=== PATIENT | female | born 1970 | race Caucasian/White ===

== ENCOUNTER 2021-08-13 12:21 | Emergency (ER) | payer OTHER ==
[~2021-08-13] VITALS: Ht 157.5 cm; Wt 59.0 kg
[2021-08-13 12:27] VITALS: BP 111/62
[2021-08-13] MEDS ORDERED: NAPR-56 PO (13:30)
[2021-08-13] MEDS ORDERED: CYCL-1 PO (13:30)
[2021-08-13] MEDS ORDERED: ketorolac trometh inj. 60 MG/2 ML VIAL IM ONE (13:45)
== END 2021-08-13 14:07 | disposition home or self-care (01) ==
LOC: ER 12:22
DX: M54.89 Other dorsalgia (principal); M62.830 Muscle spasm of back; R53.1 Weakness; E11.9 Type 2 diabetes mellitus without complications; F32.A Depression, unspecified; F12.90 Cannabis use, unspecified, uncomplicated; Z98.890 Other specified postprocedural states; Z79.899 Other long term (current) drug therapy; W19.XXXA Unspecified fall, initial encounter; Y93.89 Activity, other specified; Y92.89 Other specified places as the place of occurrence of the external cause; Y99.8 Other external cause status
CPT/HCPCS: 71101; 72100; 96372; 99284; J1885

== ENCOUNTER 2022-07-09 11:40 | Emergency (ER) | payer SELFPAY ==
[~2022-07-09] VITALS: Ht 157.5 cm; Wt 63.6 kg
[~2022-07-09 11:40] MED LIST: CYCL-1 PO
[2022-07-09 11:57] VITALS: BP 119/72
[2022-07-09] MEDS ORDERED: AMOX-100 PO (13:55)
[2022-07-09] MEDS ORDERED: IBUP-1986 PO (13:55)
[2022-07-09] MEDS ORDERED: amoxicillin 250mg capsule PO ONE (14:00)
[2022-07-09] MEDS ORDERED: ketorolac trometh inj. 60 MG/2 ML VIAL IM ONE (14:00)
== END 2022-07-09 14:29 | disposition home or self-care (01) ==
LOC: ER 11:40
DX: K08.89 Other specified disorders of teeth and supporting structures (principal); E11.9 Type 2 diabetes mellitus without complications; F32.A Depression, unspecified; F12.10 Cannabis abuse, uncomplicated; Z79.899 Other long term (current) drug therapy; Z79.2 Long term (current) use of antibiotics
CPT/HCPCS: 96372; 99283; J1885

== ENCOUNTER 2024-10-07 18:14 | Inpatient (IN) | payer BC, OTHER ==
[~2024-10-07] VITALS: Ht 157.5 cm; Wt 51.5 kg
[~2024-10-07 18:14] MED LIST changes: +IBUP-1986 PO
[2024-10-07 18:32] LABS: BASOPHILS % (AUTO) 0.6 % (0-1); EOSINOPHILS # (AUTO) 0.1 X10'3 (0-0.9); EOSINOPHILS % (AUTO) 0.7 % (0-6); HEMATOCRIT 36.9 % (35.0-45.0); HEMOGLOBIN 11.6 g/dl (12.0-16.0); LYMPHOCYTES # (AUTO) 2.1 X10'3 (1.1-4.8); LYMPHOCYTES % (AUTO) 26.3 % (21-51); MEAN CORPUSCULAR HEMOGLOBIN 22.9 PG (27.0-31.0); MEAN CORPUSCULAR HGB CONC 31.5 g/dL (33.0-36.5); MEAN CORPUSCULAR VOLUME 72.7 FL (78-98); MEAN PLATELET VOLUME 7.7 FL (7.4-10.4); MONOCYTES # (AUTO) 0.5 X10'3 (0-0.9); MONOCYTES % (AUTO) 6.8 % (2-12); NEUTROPHILS # (AUTO) 5.2 X10'3 (1.8-7.7); NEUTROPHILS % (AUTO) 65.6 % (42-75); PLATELET COUNT 375 X10'3 (140-440); RED BLOOD COUNT 5.07 X10'6 (4.20-5.60); RED CELL DISTRIBUTION WIDTH 16.6 % (11.5-14.5)
[2024-10-07 18:51] LABS: ALANINE AMINOTRANSFERASE 25 U/L (12-78); ALBUMIN 3.7 G/DL (3.4-5.0); ALKALINE PHOSPHATASE 81 IU/L (46-116); ANION GAP 11 (8-16); ASPARTATE AMINO TRANSFERASE 9 U/L (10-37); BILIRUBIN,TOTAL 0.6 MG/DL (0.1-1.0); BLOOD UREA NITROGEN 21 MG/DL (7-18); CALCIUM 8.9 MG/DL (8.5-10.1); CHLORIDE 92 MMOL/L (99-107); CREATININE 0.84 MG/DL (0.40-0.90); POTASSIUM 3.6 MMOL/L (3.5-5.1); PRO BRAIN NATRIURETIC PEPTIDE 5634 PG/ML (0-125); SODIUM 129 MMOL/L (135-145); TOTAL CARBON DIOXIDE 26.5 MMOL/L (24-32); TOTAL PROTEIN 7.3 G/DL (6.4-8.2); eCRCL 59 ML/MIN; eGFR 70 ML/MIN
[2024-10-07 19:03] LABS: GLUCOSE 429 MG/DL (70-104)
[2024-10-07] MEDS ORDERED: iohexol 350MG/ML 100ml bottle IV ONE (19:41)
[2024-10-07 19:50] LABS: D-DIMER 0.39 MG/L FEU (0-0.50)
[2024-10-07] MEDS: furosemide 40mg/4ml inj IV ONE (22:12)
[2024-10-07] MEDS ORDERED: heparin 10,000 units/1 ML INJ IV ONE (22:20)
[2024-10-07 22:45] LABS: PROTHROMBIN TIME 10.3 SECONDS (9.0-12.0)
[2024-10-07] MEDS: heparin 10,000 units/1 ML INJ IV ONE (22:47)
[2024-10-07 22:49] LABS: APTT 22 SECONDS (22-32)
[2024-10-07] MEDS ORDERED: HYDROcodone/acetaminophen 10/325mg tab PO PRN (22:50)
[2024-10-07] MEDS ORDERED: HYDROcodone/acetaminophen 5mg/325mg tablet PO PRN (22:50)
[2024-10-07] MEDS ORDERED: magnesium Cl slow-release 64mg tablet PO PRN (22:50)
[2024-10-07] MEDS ORDERED: potassium Cl 40MEQ/1/2NS 520ml 520 ML IV PRN (22:50)
[2024-10-07] MEDS ORDERED: acetaminophen 325mg tablet PO PRN ×2 (22:50)
[2024-10-07] MEDS ORDERED: magnesium sulf-water 2g/50mL 50 ML IV PRN (22:50)
[2024-10-07] MEDS: heparin 25,000 UNIT/250ml bag 250 ML IV PRN (22:50)
[2024-10-07] MEDS ORDERED: potassium Cl 20 mEq SR tablet PO PRN (22:50)
[2024-10-07] MEDS ORDERED: ondansetron/PF 4mg/2ml inj IV PRN (22:50)
[2024-10-07] MEDS ORDERED: magnesium sulf-water 4G/100mL 100 ML IV PRN (22:50)
[2024-10-07] MEDS ORDERED: dextrose 50%-water 50ml dispensing syringe IV PRN ×2 (23:00)
[2024-10-07] MEDS ORDERED: aminophylline 250mg/10ml inj. IV PRN (23:00)
[2024-10-07] MEDS ORDERED: nitroGLYCERIN 0.4mg SUBLingual tab SL PRN ×2 (23:00)
[2024-10-07] MEDS ORDERED: glucagon, human recombinant 1mg kit SUBCUT PRN (23:00)
[2024-10-07] MEDS ORDERED: DEXTROSE 15 GM of carb/4 tabs (each vial/BOTTLE has 4 tablets) PO PRN ×2 (23:00)
[2024-10-07] MEDS: MESSAGE TO NURSING IV ONE (23:09)
[2024-10-07] MEDS ORDERED: ARIP5TAB53 PO (23:17)
[2024-10-07] MEDS ORDERED: TRAZ-251 (23:17)
[2024-10-07] MEDS ORDERED: BUPR-726 PO (23:17)
[2024-10-07] MEDS ORDERED: ATOR20TA66 PO (23:17)
[2024-10-07] MEDS ORDERED: FLUO40CA PO (23:17)
[2024-10-07] MEDS ORDERED: INSU100I31 SQ (23:17)
[2024-10-07] MEDS ORDERED: FLUO-167 PO (23:17)
[2024-10-07] MEDS ORDERED: ONDA-245 PO (23:17)
[2024-10-07] MEDS ORDERED: EMPA25TA PO (23:17)
[2024-10-07] MEDS ORDERED: METF-438 PO (23:17)
[2024-10-07] MEDS ORDERED: METO-395 PO (23:17)
[2024-10-07 23:18] LABS: CHOL/HDL RATIO 4.1 (0.00-4.99); CHOLESTEROL 169 MG/DL (0-200); HDL CHOLESTEROL 41 MG/DL (35-60); LDL CHOLESTEROL 96 MG/DL (50-100); TRIGLYCERIDES 178 MG/DL (20-135)
[2024-10-07 23:20] LABS: HEMOGLOBIN A1C 8.7 % (4.5-6.2)
[2024-10-07] MEDS: insulin glargine (Lantus) VIAL- multi-dose SQ SCH (23:40)
[2024-10-07 23:41] VITALS: BP 119/74; PULSE 119; RESP 29; TEMP 97.3; O2SAT 98
[2024-10-07] MEDS: INSULIN LISPRO 100 UNIT/ML INSULN.PEN MULTI-DOSE SQ SCH (23:45)
[2024-10-08] VITALS (18 sets, daily range): BP systolic 90–140; BP diastolic 52–83; PULSE 92–132; RESP 12–29; TEMP 97.3–98.3; O2SAT 96–100
[2024-10-08] MEDS: INSULIN LISPRO 100 UNIT/ML INSULN.PEN MULTI-DOSE SQ SCH (00:39)
[2024-10-08] MEDS: pantoprazole 40 MG vial IV SCH (00:45)
[2024-10-08 04:52] LABS: BASOPHILS # (AUTO) 0.1 X10'3 (0-0.2); BASOPHILS % (AUTO) 0.6 % (0-1); EOSINOPHILS # (AUTO) 0.1 X10'3 (0-0.9); EOSINOPHILS % (AUTO) 0.6 % (0-6); HEMATOCRIT 36.7 % (35.0-45.0); HEMOGLOBIN 11.5 g/dl (12.0-16.0); LYMPHOCYTES # (AUTO) 2.8 X10'3 (1.1-4.8); LYMPHOCYTES % (AUTO) 32.2 % (21-51); MEAN CORPUSCULAR HEMOGLOBIN 23.1 PG (27.0-31.0); MEAN CORPUSCULAR HGB CONC 31.4 g/dL (33.0-36.5); MEAN CORPUSCULAR VOLUME 73.5 FL (78-98); MEAN PLATELET VOLUME 7.9 FL (7.4-10.4); MONOCYTES # (AUTO) 0.7 X10'3 (0-0.9); MONOCYTES % (AUTO) 8.2 % (2-12); NEUTROPHILS % (AUTO) 58.4 % (42-75); PLATELET COUNT 302 X10'3 (140-440); RED CELL DISTRIBUTION WIDTH 16.9 % (11.5-14.5); WHITE BLOOD COUNT 8.6 X10'3 (4.5-11.0)
[2024-10-08 05:13] LABS: ALANINE AMINOTRANSFERASE 22 U/L (12-78); ALBUMIN 3.7 G/DL (3.4-5.0); ALKALINE PHOSPHATASE 74 IU/L (46-116); ANION GAP 13 (8-16); ASPARTATE AMINO TRANSFERASE 14 U/L (10-37); BILIRUBIN,TOTAL 0.6 MG/DL (0.1-1.0); BLOOD UREA NITROGEN 20 MG/DL (7-18); BUN/CREATININE RATIO 30.8 (10.0-20.0); CALCIUM 8.9 MG/DL (8.5-10.1); CHLORIDE 97 MMOL/L (99-107); CHOLESTEROL 171 MG/DL (0-200); CREATININE 0.65 MG/DL (0.40-0.90); GLUCOSE 203 MG/DL (70-104); HDL CHOLESTEROL 43 MG/DL (35-60); LDL CHOLESTEROL 98 MG/DL (50-100); MAGNESIUM 1.9 MG/DL (1.5-2.4); POTASSIUM 3.1 MMOL/L (3.5-5.1); SODIUM 136 MMOL/L (135-145); TOTAL CARBON DIOXIDE 26.4 MMOL/L (24-32); TOTAL PROTEIN 7.4 G/DL (6.4-8.2); TRIGLYCERIDES 169 MG/DL (20-135); eCRCL 76 ML/MIN; eGFR > 90 ML/MIN
[2024-10-08] MEDS: MESSAGE TO NURSING IV ONE ×3 (05:40→19:53)
[2024-10-08] MEDS: heparin 10,000 units/1 ML INJ IV PRN (05:40)
[2024-10-08] MEDS ORDERED: INSULIN LISPRO 100 UNIT/ML INSULN.PEN MULTI-DOSE SQ SCH ×2 (07:00→09:00)
[2024-10-08] MEDS: K and/or MAG REPLACEMENT MC SCH (08:00)
[2024-10-08] MEDS: regadenoson 0.4mg/5ml syringe IV PRN (09:11)
[2024-10-08] MEDS: metoprolol tartrate 1mg/ml inj IV PRN (10:03)
[2024-10-08] MEDS: metoprolol succinate 25mg (24-HOUR) SR. Tablet PO SCH (10:38)
[2024-10-08] MEDS: EMPAGLIFLOZIN 10 MG TABLET PO SCH (10:38)
[2024-10-08] MEDS: potassium Cl 20 mEq SR tablet PO PRN (10:38)
[2024-10-08] MEDS: docusate sod 100mg capsule PO SCH (10:39)
[2024-10-08] MEDS: MULTIVIT-MIN/FERROUS GLUCONATE 9 MG/15 ML LIQUID PO SCH (18:49)
[2024-10-08] MEDS: ascorbic acid 500mg tablet PO SCH (18:50)
[2024-10-08] MEDS ORDERED: aminophylline 500mg/20ml vial IV PRN (19:35)
[2024-10-08] MEDS: Melatonin 3mg tablet PO SCH (21:04)
[2024-10-08] MEDS: traZODone 50mg tablet PO SCH (21:05)
[2024-10-09 01:35] LABS: BASOPHILS % (AUTO) 0.4 % (0-1); EOSINOPHILS # (AUTO) 0.2 X10'3 (0-0.9); EOSINOPHILS % (AUTO) 1.9 % (0-6); HEMOGLOBIN 11.2 g/dl (12.0-16.0); LYMPHOCYTES # (AUTO) 3.8 X10'3 (1.1-4.8); LYMPHOCYTES % (AUTO) 43.8 % (21-51); MEAN CORPUSCULAR HEMOGLOBIN 23.6 PG (27.0-31.0); MEAN CORPUSCULAR HGB CONC 32.9 g/dL (33.0-36.5); MEAN CORPUSCULAR VOLUME 71.6 FL (78-98); MEAN PLATELET VOLUME 7.7 FL (7.4-10.4); MONOCYTES # (AUTO) 0.5 X10'3 (0-0.9); MONOCYTES % (AUTO) 5.9 % (2-12); NEUTROPHILS # (AUTO) 4.2 X10'3 (1.8-7.7); PLATELET COUNT 285 X10'3 (140-440); RED BLOOD COUNT 4.75 X10'6 (4.20-5.60); RED CELL DISTRIBUTION WIDTH 16.9 % (11.5-14.5); WHITE BLOOD COUNT 8.8 X10'3 (4.5-11.0)
[2024-10-09 02:00] VITALS: BP 98/62; PULSE 87; RESP 12; TEMP 97.2; O2SAT 96
[2024-10-09 02:06] LABS: ALANINE AMINOTRANSFERASE 26 U/L (12-78); ALBUMIN 3.5 G/DL (3.4-5.0); ALKALINE PHOSPHATASE 71 IU/L (46-116); ANION GAP 10 (8-16); ASPARTATE AMINO TRANSFERASE 15 U/L (10-37); BILIRUBIN,TOTAL 0.5 MG/DL (0.1-1.0); BLOOD UREA NITROGEN 25 MG/DL (7-18); BUN/CREATININE RATIO 28.7 (10.0-20.0); CALCIUM 9.3 MG/DL (8.5-10.1); CHLORIDE 97 MMOL/L (99-107); CREATININE 0.87 MG/DL (0.40-0.90); GLUCOSE 192 MG/DL (70-104); MAGNESIUM 2.1 MG/DL (1.5-2.4); PHOSPHORUS 5.2 MG/DL (2.3-4.5); POTASSIUM 3.3 MMOL/L (3.5-5.1); SODIUM 134 MMOL/L (135-145); TOTAL CARBON DIOXIDE 27.3 MMOL/L (24-32); TOTAL PROTEIN 7.1 G/DL (6.4-8.2); eCRCL 57 ML/MIN; eGFR 67 ML/MIN
[2024-10-09] MEDS: MESSAGE TO NURSING IV ONE ×2 (02:47→09:04)
[2024-10-09] MEDS: heparin 25,000 UNIT/250ml bag 250 ML IV PRN (04:32)
[2024-10-09 06:00] VITALS: BP 92/53; PULSE 80; RESP 16; TEMP 97.3; O2SAT 98
[2024-10-09 08:00] VITALS: RESP 16; O2SAT 98
[2024-10-09] MEDS ORDERED: FLUoxetine 20mg capsule PO SCH (08:00)
[2024-10-09] MEDS ORDERED: metoprolol succinate 25mg (24-HOUR) SR. Tablet PO SCH (08:00)
[2024-10-09] MEDS: EMPAGLIFLOZIN 25 MG TABLET PO SCH (08:57)
[2024-10-09] MEDS: atorvastatin 20mg tablet PO SCH (08:58)
[2024-10-09] MEDS: ferrous sulfate 325mg tablet PO SCH (08:58)
[2024-10-09] MEDS: FLUoxetine 20mg capsule PO SCH (08:58)
[2024-10-09] MEDS: BUPROPION HCL 150MG XL 24 HR 150 MG TAB PO SCH (08:59)
[2024-10-09] MEDS: aripiprazole 5mg tablet PO SCH (08:59)
[2024-10-09] MEDS ORDERED: FER325T PO (10:31)
[2024-10-09] MEDS ORDERED: CALC500T79 PO (10:39)
[2024-10-09] MEDS ORDERED: CHOL100046 PO (10:39)
[2024-10-09] MEDS ORDERED: MULT-1085 PO (10:39)
[2024-10-09] MEDS ORDERED: CYAN500T71 PO (10:39)
[2024-10-09] MEDS ORDERED: ASCO500C18 PO (10:39)
[2024-10-09] MEDS ORDERED: MELA3TAB39 PO (10:39)
[2024-10-09] MEDS ORDERED: SPIR25TA5 PO (10:39)
[2024-10-09] MEDS ORDERED: LOSA50TA64 PO (10:39)
[2024-10-09 11:06] VITALS: BP 108/69; PULSE 91; RESP 15; TEMP 97.7; O2SAT 99
[2024-10-09] MEDS: calcium carbonate 500mg tablet PO SCH (12:46)
[2024-10-09] MEDS: cholecalciferol (vitamin D3) 1,000 unit (25mcg) tablet PO SCH (12:46)
[2024-10-09] MEDS ORDERED: calcium carbonate 500mg tablet PO SCH (17:30)
[2024-10-09] MEDS ORDERED: cyanocobalamin 500mcg tablet PO SCH (17:30)
== END 2024-10-09 13:50 | disposition home or self-care (01) | DRG 282 ==
LOC: ER 18:14 → ED HOLD 22:17 → PCU 3S 23:45
PROVIDERS: ADMIT Surgery Surgical Critical Care; ATTEND Internal Medicine
PROC: B32T1ZZ Computerized Tomography (CT Scan) of Left Pulmonary Artery using Low Osmolar Contrast (ICD-10-PCS; 2024-10-07)
PROC: B3201ZZ Computerized Tomography (CT Scan) of Thoracic Aorta using Low Osmolar Contrast (ICD-10-PCS; 2024-10-07)
PROC: B32S1ZZ Computerized Tomography (CT Scan) of Right Pulmonary Artery using Low Osmolar Contrast (ICD-10-PCS; 2024-10-07)
PROC: 4A02XM4 Measurement of Cardiac Total Activity, External Approach (ICD-10-PCS; principal; 2024-10-08)
PROC: 3E033HZ Introduction of Radioactive Substance into Peripheral Vein, Percutaneous Approach (ICD-10-PCS; 2024-10-08)
DX: I50.33 Acute on chronic diastolic (congestive) heart failure (principal); I21.A1 Myocardial infarction type 2; E11.9 Type 2 diabetes mellitus without complications; D50.9 Iron deficiency anemia, unspecified; E87.6 Hypokalemia; E87.8 Other disorders of electrolyte and fluid balance, not elsewhere classified; Z79.899 Other long term (current) drug therapy; Z79.4 Long term (current) use of insulin; Z98.84 Bariatric surgery status
CPT/HCPCS: 36415; 71045; 71275; 78452; 80053; 80061; 82948; 83036; 83735; 83880; 84100; 84132; 84484; 85025; 85379; 85610; 85730; 87081; 93005; 93017; 93306; 96374; 97161; 97530; 99291; A9500; G0378; J1644; J1815; J1940; J2470; J2785; J3490; Q9967

== ENCOUNTER 2024-10-12 22:01 | Inpatient (IN) | payer OTHER ==
[~2024-10-12] VITALS: Ht 157.5 cm; Wt 52.8 kg
[~2024-10-12 22:01] MED LIST changes: +ARIP5TAB53 PO; +ASCO500C18 PO; +ATOR20TA66 PO; +BUPR-726 PO; +CALC500T79 PO; +CHOL100046 PO; +CYAN500T71 PO; -CYCL-1 PO; +EMPA25TA PO; +FER325T PO; +FLUO40CA PO; -IBUP-1986 PO; +INSU100I31 SQ; +LOSA50TA64 PO; +MELA3TAB39 PO; +METF-438 PO; +METO-395 PO; +MULT-1085 PO; +ONDA-245 PO; +SPIR25TA5 PO; +TRAZ-251
[2024-10-12 22:37] LABS: BASOPHILS # (AUTO) 0.1 X10'3 (0-0.2); BASOPHILS % (AUTO) 0.8 % (0-1); EOSINOPHILS # (AUTO) 0.1 X10'3 (0-0.9); EOSINOPHILS % (AUTO) 0.7 % (0-6); HEMATOCRIT 36.5 % (35.0-45.0); HEMOGLOBIN 11.3 g/dl (12.0-16.0); LYMPHOCYTES # (AUTO) 1.6 X10'3 (1.1-4.8); LYMPHOCYTES % (AUTO) 16.4 % (21-51); MEAN CORPUSCULAR HEMOGLOBIN 22.8 PG (27.0-31.0); MEAN CORPUSCULAR HGB CONC 30.8 g/dL (33.0-36.5); MEAN CORPUSCULAR VOLUME 73.8 FL (78-98); MEAN PLATELET VOLUME 8.9 FL (7.4-10.4); MONOCYTES # (AUTO) 0.7 X10'3 (0-0.9); MONOCYTES % (AUTO) 7.2 % (2-12); NEUTROPHILS # (AUTO) 7.3 X10'3 (1.8-7.7); NEUTROPHILS % (AUTO) 74.9 % (42-75); PLATELET COUNT 305 X10'3 (140-440); RED BLOOD COUNT 4.95 X10'6 (4.20-5.60); RED CELL DISTRIBUTION WIDTH 17.7 % (11.5-14.5); WHITE BLOOD COUNT 9.7 X10'3 (4.5-11.0)
[2024-10-12 22:48] LABS: ALANINE AMINOTRANSFERASE 30 U/L (12-78); ALBUMIN 3.6 G/DL (3.4-5.0); ALBUMIN/GLOBULIN RATIO 1.1 (1.1-1.5); ALKALINE PHOSPHATASE 70 IU/L (46-116); ANION GAP 12 (8-16); ASPARTATE AMINO TRANSFERASE 26 U/L (10-37); BILIRUBIN,TOTAL 0.4 MG/DL (0.1-1.0); BLOOD UREA NITROGEN 21 MG/DL (7-18); BUN/CREATININE RATIO 18.8 (10.0-20.0); CALCIUM 8.9 MG/DL (8.5-10.1); CHLORIDE 97 MMOL/L (99-107); CREATININE 1.12 MG/DL (0.40-0.90); GLUCOSE 303 MG/DL (70-104); SODIUM 133 MMOL/L (135-145); TOTAL CARBON DIOXIDE 23.8 MMOL/L (24-32); eCRCL 44 ML/MIN; eGFR 50 ML/MIN
[2024-10-12 22:56] LABS: POTASSIUM 3.5 MMOL/L (3.5-5.1); PRO BRAIN NATRIURETIC PEPTIDE 1529 PG/ML (0-125)
[2024-10-12] MEDS: normal saline 1000ML IV soln IVB ONE (23:26)
[2024-10-13] VITALS (9 sets, daily range): BP systolic 79–138; BP diastolic 50–64; PULSE 72–90; RESP 8–20; TEMP 97.2–98.8; O2SAT 96–99
[2024-10-13] MEDS ORDERED: potassium Cl 40MEQ/1/2NS 520ml 520 ML IV PRN (01:15)
[2024-10-13] MEDS ORDERED: mag hydrox/Alum hydrox/simeth 30ml oral suspension PO PRN (01:15)
[2024-10-13] MEDS ORDERED: DEXTROSE 15 GM of carb/4 tabs (each vial/BOTTLE has 4 tablets) PO PRN ×2 (01:15)
[2024-10-13] MEDS ORDERED: magnesium sulf-water 4G/100mL 100 ML IV PRN (01:15)
[2024-10-13] MEDS ORDERED: acetaminophen 325mg tablet PO PRN ×2 (01:15)
[2024-10-13] MEDS ORDERED: dextrose 50%-water 50ml dispensing syringe IV PRN ×2 (01:15)
[2024-10-13] MEDS ORDERED: glucagon, human recombinant 1mg kit SUBCUT PRN (01:15)
[2024-10-13] MEDS ORDERED: magnesium Cl slow-release 64mg tablet PO PRN (01:15)
[2024-10-13] MEDS ORDERED: magnesium sulf-water 2g/50mL 50 ML IV PRN (01:15)
[2024-10-13] MEDS: normal saline 1000ml 1,000 ML IV SCH ×2 (01:57→21:10)
[2024-10-13 02:05] LABS: FREE T4 (FREE THYROXINE) 1.54 NG/DL (0.73-1.40); THYROID STIMULATING HORMONE 6.57 ulU/ml (0.34-4.50)
[2024-10-13 06:40] LABS: FERRITIN 18 NG/ML (8-252)
[2024-10-13 06:51] LABS: IRON 23 UG/DL (49-151)
[2024-10-13 06:52] LABS: % IRON SATURATION 8 % (11-46); TOTAL IRON BINDING CAPACITY 306 UG/DL (259-388)
[2024-10-13] MEDS: INSULIN LISPRO 100 UNIT/ML INSULN.PEN MULTI-DOSE SQ SCH ×2 (07:00→09:00)
[2024-10-13 07:35] LABS: BILIRUBIN,URINE NEGATIVE (Neg); CLARITY,URINE SLIGHTLY CLOUDY (Clear); COLOR,URINE YELLOW (Yellow); GLUCOSE, URINE >=1000 mg/dl (Neg); KETONES,URINE 40 mg/dl (Neg); LEUKOCYTE ESTERASE ,URINE NEGATIVE (Neg); NITRITES, URINE POSITIVE (Neg); OCCULT BLOOD,URINE NEGATIVE (Neg); PROTEIN,URINE NEGATIVE (Neg); UROBILINOGEN,URINE 0.2 E.U/dL (0.2-1.0)
[2024-10-13 07:40] LABS: UA COLLECTION TYPE NON-SPECIFIED
[2024-10-13 07:41] LABS: BACTERIA,URINE 4+ /HPF (Neg); RBC,URINE NONE SEEN /HPF (0-2); SQUAMOUS EPITHELIAL CELL,UR MODERATE /LPF (FEW); WBC,URINE 50-100 /HPF (0-4)
[2024-10-13 07:42] LABS: MUCUS STRANDS NONE SEEN /LPF (Neg)
[2024-10-13] MEDS: K and/or MAG REPLACEMENT MC SCH (08:00)
[2024-10-13] MEDS: metoprolol succinate 25mg (24-HOUR) SR. Tablet PO SCH (08:00)
[2024-10-13] MEDS: atorvastatin 20mg tablet PO SCH (08:00)
[2024-10-13] MEDS: aripiprazole 5mg tablet PO SCH (08:00)
[2024-10-13] MEDS: docusate sod 100mg capsule PO SCH (08:00)
[2024-10-13 09:38] LABS: BASOPHILS # (AUTO) 0.1 X10'3 (0-0.2); BASOPHILS % (AUTO) 0.7 % (0-1); EOSINOPHILS # (AUTO) 0.1 X10'3 (0-0.9); EOSINOPHILS % (AUTO) 1.1 % (0-6); HEMATOCRIT 31.8 % (35.0-45.0); HEMOGLOBIN 9.9 g/dl (12.0-16.0); LYMPHOCYTES # (AUTO) 2.7 X10'3 (1.1-4.8); LYMPHOCYTES % (AUTO) 31.9 % (21-51); MEAN CORPUSCULAR HEMOGLOBIN 23.2 PG (27.0-31.0); MEAN CORPUSCULAR VOLUME 74.9 FL (78-98); MEAN PLATELET VOLUME 8.8 FL (7.4-10.4); MONOCYTES # (AUTO) 0.6 X10'3 (0-0.9); MONOCYTES % (AUTO) 7.2 % (2-12); NEUTROPHILS % (AUTO) 59.1 % (42-75); PLATELET COUNT 259 X10'3 (140-440); RED BLOOD COUNT 4.25 X10'6 (4.20-5.60); RED CELL DISTRIBUTION WIDTH 17.2 % (11.5-14.5); WHITE BLOOD COUNT 8.4 X10'3 (4.5-11.0)
[2024-10-13 09:53] LABS: ALANINE AMINOTRANSFERASE 26 U/L (12-78); ALBUMIN 3.1 G/DL (3.4-5.0); ALBUMIN/GLOBULIN RATIO 1.1 (1.1-1.5); ALKALINE PHOSPHATASE 59 IU/L (46-116); ANION GAP 9 (8-16); ASPARTATE AMINO TRANSFERASE 23 U/L (10-37); BILIRUBIN,TOTAL 0.6 MG/DL (0.1-1.0); BLOOD UREA NITROGEN 15 MG/DL (7-18); BUN/CREATININE RATIO 24.2 (10.0-20.0); CALCIUM 8.2 MG/DL (8.5-10.1); CHLORIDE 101 MMOL/L (99-107); CREATININE 0.62 MG/DL (0.40-0.90); GLUCOSE 127 MG/DL (70-104); POTASSIUM 3.4 MMOL/L (3.5-5.1); SODIUM 138 MMOL/L (135-145); eCRCL 80 ML/MIN; eGFR > 90 ML/MIN
[2024-10-13] MEDS: ondansetron/PF 4mg/2ml inj IV PRN (11:48)
[2024-10-13] MEDS: heparin, porcine 5000 units/ml vial SQ SCH (11:48)
[2024-10-13] MEDS: iron sucrose complex injection 300 MG in normal saline 250ml IV soln 250 ML IV SCH (11:48)
[2024-10-13] MEDS: insulin glargine (Lantus) pen - multi-dose SQ SCH (21:17)
[2024-10-13] MEDS: potassium Cl 20 mEq SR tablet PO PRN (21:20)
[2024-10-14] VITALS (10 sets, daily range): BP systolic 73–110; BP diastolic 46–70; PULSE 70–93; RESP 11–16; TEMP 96.7–98.8; O2SAT 98–100
[2024-10-14 05:58] LABS: BASOPHILS # (AUTO) 0.1 X10'3 (0-0.2); EOSINOPHILS # (AUTO) 0.2 X10'3 (0-0.9); HEMATOCRIT 29.5 % (35.0-45.0); HEMOGLOBIN 9.3 g/dl (12.0-16.0); LYMPHOCYTES # (AUTO) 1.4 X10'3 (1.1-4.8); MEAN CORPUSCULAR HEMOGLOBIN 23.7 PG (27.0-31.0); MEAN CORPUSCULAR HGB CONC 31.4 g/dL (33.0-36.5); MEAN CORPUSCULAR VOLUME 75.3 FL (78-98); MEAN PLATELET VOLUME 8.4 FL (7.4-10.4); MONOCYTES # (AUTO) 0.4 X10'3 (0-0.9); MONOCYTES % (AUTO) 8.6 % (2-12); NEUTROPHILS # (AUTO) 3.1 X10'3 (1.8-7.7); NEUTROPHILS % (AUTO) 59.4 % (42-75); PLATELET COUNT 209 X10'3 (140-440); RED BLOOD COUNT 3.91 X10'6 (4.20-5.60); WHITE BLOOD COUNT 5.2 X10'3 (4.5-11.0)
[2024-10-14 06:24] LABS: MAGNESIUM 1.5 MG/DL (1.5-2.4); PHOSPHORUS 2.7 MG/DL (2.3-4.5)
[2024-10-14] MEDS: potassium Cl 20 mEq SR tablet PO PRN (08:02)
[2024-10-14] MEDS: magnesium hydroxide 30ml (MOM) UD suspension PO PRN (08:03)
[2024-10-14 08:24] LABS: ALBUMIN 2.7 G/DL (3.4-5.0); ANION GAP 10 (8-16); BLOOD UREA NITROGEN 11 MG/DL (7-18); BUN/CREATININE RATIO 15.3 (10.0-20.0); CALCIUM 8.3 MG/DL (8.5-10.1); CHLORIDE 105 MMOL/L (99-107); CREATININE 0.72 MG/DL (0.40-0.90); GLUCOSE 187 MG/DL (70-104); POTASSIUM 3.3 MMOL/L (3.5-5.1); SODIUM 139 MMOL/L (135-145); TOTAL CARBON DIOXIDE 24.3 MMOL/L (24-32); eCRCL 69 ML/MIN; eGFR 84 ML/MIN
[2024-10-15 02:00] VITALS: BP 88/48; PULSE 66; RESP 16; TEMP 99; O2SAT 99
[2024-10-15 06:00] VITALS: BP 103/64; PULSE 93; RESP 13; TEMP 97.3; O2SAT 100
[2024-10-15 06:07] LABS: BASOPHILS # (AUTO) 0.1 X10'3 (0-0.2); BASOPHILS % (AUTO) 0.9 % (0-1); EOSINOPHILS # (AUTO) 0.2 X10'3 (0-0.9); EOSINOPHILS % (AUTO) 2.4 % (0-6); HEMOGLOBIN 9.3 g/dl (12.0-16.0); LYMPHOCYTES # (AUTO) 2.3 X10'3 (1.1-4.8); MEAN CORPUSCULAR HGB CONC 32.1 g/dL (33.0-36.5); MEAN CORPUSCULAR VOLUME 74.8 FL (78-98); MEAN PLATELET VOLUME 9.1 FL (7.4-10.4); MONOCYTES # (AUTO) 0.6 X10'3 (0-0.9); MONOCYTES % (AUTO) 9.9 % (2-12); NEUTROPHILS # (AUTO) 3.2 X10'3 (1.8-7.7); NEUTROPHILS % (AUTO) 50.8 % (42-75); PLATELET COUNT 220 X10'3 (140-440); RED BLOOD COUNT 3.88 X10'6 (4.20-5.60); RED CELL DISTRIBUTION WIDTH 18.1 % (11.5-14.5); WHITE BLOOD COUNT 6.4 X10'3 (4.5-11.0)
[2024-10-15 06:18] LABS: MAGNESIUM 1.6 MG/DL (1.5-2.4); PHOSPHORUS 3.2 MG/DL (2.3-4.5); POTASSIUM 4.2 MMOL/L (3.5-5.1)
[2024-10-15] MEDS ORDERED: CHOL100046 PO (10:55)
[2024-10-15 11:00] VITALS: BP 97/55; PULSE 85; RESP 18; TEMP 96.7; O2SAT 100
[2024-10-15] MEDS ORDERED: CIPR-259 PO (17:52)
[2024-10-15] MEDS ORDERED: MIDO5TAB4 PO (18:05)
== END 2024-10-15 12:50 | disposition home or self-care (01) | DRG 312 ==
LOC: ER 22:01 → ED HOLD 10-13 01:18 → PCU 3S 10-13 03:20
PROVIDERS: ADMIT Internal Medicine Critical Care Medicine; ATTEND Family Medicine
DX: I95.1 Orthostatic hypotension (principal); N17.9 Acute kidney failure, unspecified; I50.30 Unspecified diastolic (congestive) heart failure; G90.9 Disorder of the autonomic nervous system, unspecified; E86.0 Dehydration; E78.00 Pure hypercholesterolemia, unspecified; E11.9 Type 2 diabetes mellitus without complications; D50.9 Iron deficiency anemia, unspecified; I25.10 Atherosclerotic heart disease of native coronary artery without angina pectoris; I11.0 Hypertensive heart disease with heart failure; I44.7 Left bundle-branch block, unspecified; K21.9 Gastro-esophageal reflux disease without esophagitis; F41.9 Anxiety disorder, unspecified; F32.A Depression, unspecified; T50.995A Adverse effect of other drugs, medicaments and biological substances, initial encounter; Y92.89 Other specified places as the place of occurrence of the external cause; Z79.899 Other long term (current) drug therapy; Z86.73 Personal history of transient ischemic attack (TIA), and cerebral infarction without residual deficits; Z98.84 Bariatric surgery status
CPT/HCPCS: 36415; 71045; 76536; 80048; 80053; 81001; 82607; 82728; 82948; 83540; 83550; 83735; 83880; 84100; 84132; 84439; 84443; 84466; 84484; 85025; 87077; 87081; 87088; 87186; 93005; 93880; 96360; 97116; 97162; 99285; G0378; J1644; J1756; J1815; J2405; J7030; J7050

== ENCOUNTER 2025-02-14 12:26 | Emergency (ER) | payer OTHER ==
[~2025-02-14] VITALS: Ht 157.5 cm; Wt 59.6 kg
[~2025-02-14 12:26] MED LIST changes: -ASCO500C18 PO; -CALC500T79 PO; -INSU100I31 SQ; +MIDO5TAB4 PO; -ONDA-245 PO; -SPIR25TA5 PO
[2025-02-14 12:38] VITALS: BP 109/62; PULSE 93; RESP 18; O2SAT 99
--- NOTE | 2025-02-14 13:42 | Physician Documentation ---
HPI ~ General Chief Complaint: Tooth Problem Stated Complaint: TOOTH PAIN/SWELLING Time Seen by MD: 12:56 OK to notify your PCP?: Yes Primary Medical Doctor: Dr Lyubov Salinas Source: patient Mode of Arrival: POV Exam Limitations: no limitations History of Present Illness HPI Comment 54-year-old female who had 3 teeth pulled 3 weeks ago. She states that she was taking amoxicillin prior to the extractions. This morning she woke up to severe pain and swelling to her right lower jaw next to the extraction sites. She does have some discharge coming out of the extraction sites as well. She denies any fevers. Medication Reconciliation Allergies: Coded Allergies: crab (Unverified Allergy, Unknown, 10/12/24) Scheduled Aripiprazole (Aripiprazole), 1 TAB PO DAILY, (Reported) Atorvastatin Calcium (Atorvastatin Calcium), 1 TAB PO DAILY, (Reported) Bupropion HCl (Bupropion Xl), 1 TAB PO DAILY, (Reported) Cholecalciferol (Vitamin D3) (Vitamin D3), 1,000 UNIT PO LUNCH Cyanocobalamin* (Vitamin B-12*), 500 MCG PO DINN Empagliflozin (Jardiance), 1 TAB PO QAM, (Reported) Ferrous Sulfate (Ferrous Sulfate), 325 MG PO DAILY Fluoxetine Hcl (Fluoxetine Hcl), 1 CAP PO QAM, (Reported) Losartan Potassium (Losartan Potassium), 1 TAB PO DAILY Melatonin (Melatonin), 6 MG PO HS Metoprolol Succinate (Metoprolol Succinate), 1 TAB PO DAILY, (Reported) Midodrine HCl (Midodrine HCl), 1 TAB PO Q12H Multivitamin (Multi Vitamin Daily), 1 TAB PO DAILY Miscellaneous Medications Metformin HCl (Metformin HCl), 1 TAB PO, (Reported) Trazodone HCl (Trazodone HCl), (Reported) Past Medical History Past Medical History: Coronary Artery Disease, Congestive Heart Failure, High Cholesterol, GERD, Diabetes, Anxiety, Depression Past Surgical History: gastric bypass, orthopedic surgeries Other Past Surgical History: x6 carpal tunnels, bilateral knee surgeries Alcohol Use: Rarely Drug Use: marijuana Lives with: Spouse Lives In: Home Occupation: employed Review of Systems All Other Systems at this time: Reviewed and Negative Physical Exam Vital Signs: RN Vital Signs have been reviewed: Yes, Temperature: 98.4, Source: Temporal, Heart Rate: 93, Respiratory Rate: 18, BP: 109/62, Pulse Oximetry: 99, Weight: 59.600 Oxygen Flow Rate: 0 Pulse Oximetry Reflects: adequate oxygenation Physical Exam General: Alert, no distress. HEENT: No injection, moist mucous membranes. Neck: Full range of motion. No cervical lymphadenopathy. Respiratory: No respiratory distress, equal chest rise and fall. Chest: No accessory muscle use. Cardiovascular: Regular rate and rhythm. Gastrointestinal: Nondistended. Extremities: Normal range of motion, no deformity. Neurologic: Oriented x4. Psychiatric: Normal mood and affect. Skin: Normal color, warm and dry. Mouth/Throat: maxillary swelling Palate: normal inspection Teeth/Gums: missing teeth, draining (Purulent), gingiva redness Face: swelling Face Right lower cheek Progress Results/Orders Reviewed/noted all lab results: Yes Results/Orders Vital Signs 02/14/25 12:38 Temp 98.4 Pulse 93 Resp 18 B/P (MAP) 109/62 Pulse Ox 99 O2 Flow Rate 0 Medical Decision Making Additional info obtained from: old records Findings 54-year-old female with drainage from 3 extraction sites on the right lower jaw as well as pain and swelling since this morning. She denies any fevers, her vital signs are stable and she is nontoxic appearing. She had taken amoxicillin prior to the 3 extractions 3 weeks ago. I will start her on Augmentin, 1st dose given here in the rest sent to her pharmacy. She reports that she has taken 1000 mg of ibuprofen and 1000 mg of Tylenol with no relief. I will give her 5 day supply of [place] to help with this pain and dental abscess. She was given follow up instructions as well as return instructions. Differential Dx:Considerations: Include: Facial Cellulitis, Post-extraction bleeding, Tooth Fracture, Trigeminal neuralgia Departure Disposition: HOME / SELF CARE / HOMELESS Impression: Primary Impression: Dental abscess Condition: Stable Discharge Instructions: Dental Abscess Additional Instructions: Follow up with her primary care provider or dentist within the next week. Return back here for any new or worsening symptoms. Referrals: NO PRIMARY CARE PROVIDER (PCP) Prescriptions Amox Tr/Potassium Clavulanate 875/125 MG (Augmentin 875/125 MG) 875 Mg-125 Mg Tablet 1 TAB PO Q12H for 10 Days, #20 TAB Prov: SUSU LANDON CUSTOMER FIELD REPRESENTATIVE 8/23/25 Hydrocodone Bit/Acetaminophen 5/325 MG ([place] 5/325 MG) 5 Mg/325 Mg Tablet 1 TAB PO TID PRN PRN for pain for 5 Days, #15 TAB Prov: SUSU LANDON 02/14/25 Education Educated: Patient Educated regarding: diagnosis, treatment, prognosis, need for follow up Additional Comment Medical Screen Exam This patient recieved a medical screening examination. After reviewing the individual's medical complaints with presenting symptoms and performing an appropriate physical examination, it was determined that no immediate life- threatening emergency medical condition is present. This individual is also not a women having contractions. Signature Scribe Signature: . Attestation: Scribed for Susu Landonp by Susu Ray NP . 02/14/25 13:45 Parts of this note were created using [email or web address] voice recognition software program. While efforts were made to correct any mistakes made by this voice recognition software program, nonsensical phrases may remain in this note. In addition, there may be errors and syntax, grammar, content and spelling. SUSU LANDON Feb 14, 2025 13:42
[2025-02-14] MEDS ORDERED: AMOX-580 PO (13:44)
[2025-02-14] MEDS ORDERED: HYDR-3965 PO (13:44)
[2025-02-14] MEDS: amox tr/potassium clavulanate 875/125mg TAB PO ONE (13:59)
[2025-02-14 14:01] VITALS: TEMP 98.4
== END 2025-02-14 14:02 | disposition home or self-care (01) ==
LOC: ER 12:26
DX: K04.7 Periapical abscess without sinus (principal); E11.9 Type 2 diabetes mellitus without complications; E78.00 Pure hypercholesterolemia, unspecified; I25.10 Atherosclerotic heart disease of native coronary artery without angina pectoris; I50.9 Heart failure, unspecified; F41.9 Anxiety disorder, unspecified; F32.A Depression, unspecified; Z88.8 Allergy status to other drugs, medicaments and biological substances; Z98.84 Bariatric surgery status
CPT/HCPCS: 99283

== ENCOUNTER 2025-04-14 17:05 | Emergency (ER) | payer OTHER ==
[~2025-04-14] VITALS: Ht 157.5 cm; Wt 64.6 kg
--- NOTE | 2025-04-14 17:36 | ELECTROCARDIOGRAPH REPORT ---
[facility], [place] Test Date: 2025-04-14 Test Time: 17:08:55 Pat Name: BRENDA CASAS Department: EMERGENCY ROOM [id number] Room: Gender: [place] [employer]: : 1970 Requested By: FRIDA STYLES Order Number: [id number] Reading MD: Measurements Intervals [place] Rate: 76 P: 68 CT: 159 QRS: 18 QRSD: 154 T: 93 QT: 432 QTc: 486 Interpretive Statements Sinus rhythm Probable left atrial enlargement IVCD, consider atypical LBBB Baseline wander in lead(s) V2 Please click the below link to view image of tracing.
--- NOTE | 2025-04-14 17:45 | RADIOLOGY REPORT ---
CLINICAL HISTORY: CP TECHNIQUE: Single view of the chest was obtained. COMPARISON: DI CHEST,SINGLE VIEW on DOS: 10/12/24, CT CTA CHEST PE W/ IV CONTRAST on DOS: 10/07/24, DI CHEST,SINGLE VIEW on DOS: 10/07/24, CHEST,SINGLE VIEW on DOS: 01/10/23, UNI RIBS WITH PA CHEST on DOS: 08/13/21 FINDINGS: The heart size and pulmonary vasculature are normal. The lungs are clear. IMPRESSION: NO ACUTE CARDIOPULMONARY PROCESS.
[2025-04-14 17:49] LABS: MEAN PLATELET VOLUME 8.3 FL (7.4-10.4); RED CELL DISTRIBUTION WIDTH 13.0 % (11.5-14.5)
[2025-04-14 18:13] LABS: CREATININE 0.73 MG/DL (0.40-0.90); PRO BRAIN NATRIURETIC PEPTIDE 98 PG/ML (0-125); TOTAL CARBON DIOXIDE 26.0 MMOL/L (24-32); eCRCL 67 ML/MIN; eGFR 82 ML/MIN
--- NOTE | 2025-04-14 22:28 | Physician Documentation ---
History of Present Illness ~ Chief Complaint: Shortness of Breath Stated Complaint: SOB/CHEST PAIN Time Seen by MD: 22:27 Primary Medical Doctor: Dr Lyubov Salinas [facility] Patient presents to the emergency room for evaluation of shortness of breath. Patient has history of congestive heart failure and she states that this seems to feel similar. She reports recent stent placement over the past few months at [facility]. This was done secondary to a positive catheterization that she underwent at [place] despite having a negative stress test in September here. She has noticed mild swelling to her lower extremities and reports good compliance. She was seen here previously for multiple syncopal episodes thought to be orthostatic in nature and she states this has improved. Medication Reconciliation Allergies: Coded Allergies: crab (Unverified Allergy, Unknown, 10/12/24) Scheduled Aripiprazole (Aripiprazole), 1 TAB PO DAILY, (Reported) Atorvastatin Calcium (Atorvastatin Calcium), 1 TAB PO DAILY, (Reported) Bupropion HCl (Bupropion Xl), 1 TAB PO DAILY, (Reported) Cholecalciferol (Vitamin D3) (Vitamin D3), 1,000 UNIT PO LUNCH Cyanocobalamin* (Vitamin B-12*), 500 MCG PO DINN Empagliflozin (Jardiance), 1 TAB PO QAM, (Reported) Ferrous Sulfate (Ferrous Sulfate), 325 MG PO DAILY Fluoxetine Hcl (Fluoxetine Hcl), 1 CAP PO QAM, (Reported) Losartan Potassium (Losartan Potassium), 1 TAB PO DAILY Melatonin (Melatonin), 6 MG PO HS Metoprolol Succinate (Metoprolol Succinate), 1 TAB PO DAILY, (Reported) Midodrine HCl (Midodrine HCl), 1 TAB PO Q12H Multivitamin (Multi Vitamin Daily), 1 TAB PO DAILY Miscellaneous Medications Metformin HCl (Metformin HCl), 1 TAB PO, (Reported) Trazodone HCl (Trazodone HCl), (Reported) Past Medical History Past Medical History: Coronary Artery Disease, Congestive Heart Failure, High Cholesterol, GERD, Diabetes, Anxiety, Depression Past Surgical History: gastric bypass, orthopedic surgeries Other Past Surgical History: x6 carpal tunnels, bilateral knee surgeries Alcohol Use: Rarely Drug Use: marijuana Lives with: Spouse Lives In: Home Occupation: employed Review of Systems ROS All review of systems negative except as per HPI Physical Exam Vital Signs: Temperature: 98.1, Source: Temporal, Heart Rate: 85, Respiratory Rate: 16, BP: 125/65, Pulse Oximetry: 98, Weight: 64.600 Oxygen Flow Rate: 0 Physical Exam General: Patient is awake, alert, oriented x4 in no acute distress and well appearing.~ Head: Normocephalic and atraumatic. Eyes: Conjunctival normal. EOMI. PERRL. ENT: Mucous membranes moist. Neck: Supple, trachea is midline. Chest: Clear to auscultation bilaterally without rales, rhonchi, or wheezes. There is no accessory muscle use or retractions. Extremities: Normal strength. Normal range of motion. No deformities, trace edema Progress Results/Orders Results/Orders Completed Orders - ELIEL OSUNA MD D-Dimer (04/14/25 22:40) Vital Signs 04/14/25 04/14/25 04/14/25 04/14/25 17:12 22:25 23:33 23:35 Temp 98.1 Pulse 76 85 64 Resp 18 16 18 16 B/P (MAP) 133/68 125/65 (85) 102/50 (67) Pulse Ox 99 98 98 O2 Flow Rate 0 0 0 Laboratory Tests Test 04/14/25 17:20 04/14/25 20:17 04/14/25 20:53 04/14/25 22:51 White Blood Count 8.4 Red Blood Count 4.00 L Hemoglobin 11.5 L Hematocrit 34.6 L Mean Corpuscular Volume 86.3 Mean Corpuscular Hemoglobin 28.6 Mean Corpuscular Hemoglobin Concent 33.2 Red Cell Distribution Width 13.0 Platelet Count 271 Mean Platelet Volume 8.3 Neutrophils (%) (Auto) 64.0 Lymphocytes (%) (Auto) 27.4 Monocytes (%) (Auto) 4.3 Eosinophils (%) (Auto) 3.7 Basophils (%) (Auto) 0.6 Neutrophils # (Auto) 5.4 Lymphocytes # (Auto) 2.3 Monocytes # (Auto) 0.4 Eosinophils # (Auto) 0.3 Basophils # (Auto) 0.0 CBC Comment Sodium Level 138 Potassium Level 3.9 Chloride Level 105 Carbon Dioxide Level 26.0 Anion Gap 7 L Blood Urea Nitrogen 10 Creatinine 0.73 Estimated GFR/1.73 m2 82 BUN/Creatinine Ratio 13.7 Glucose Level 119 H Calcium Level 8.5 Troponin I High Sensitivity 5 4 4 Pro-B-Type Natriuretic Peptide 98 Albumin 3.4 Chemistry Comments Troponin I High Sens Percent Delta 20 20 Troponin I Hi Sens Absolute Change -1 -1 D-Dimer 0.24 D-Dimer Comment EKG/XRAY/CT/US/VASC/MRI EKG : Additional Comment EKG interpreted by myself shows time of 1708, sinus rhythm, normal axis, left bundle-branch block, nonspecific ST-T changes Chest X-Ray : Additional Comments 04/14/25/ 1735 Ordering Physician: FRIDA STYLES MD Exam: CHEST,SINGLE VIEW CLINICAL HISTORY: CP TECHNIQUE: Single view of the chest was obtained. COMPARISON: DI CHEST,SINGLE VIEW on DOS: 10/12/24, CT CTA CHEST PE W/ IV CONTRAST on DOS: 10/07/24, DI CHEST,SINGLE VIEW on DOS: 10/07/24, CHEST,SINGLE VIEW on DOS: 01/10/23, UNI RIBS WITH PA CHEST on DOS: 08/13/21 FINDINGS: The heart size and pulmonary vasculature are normal. The lungs are clear. IMPRESSION: NO ACUTE CARDIOPULMONARY PROCESS. Medical Decision Making Additional information obtaine: old records Findings Patient presents to the emergency room for evaluation of shortness of breath. Differentials include but are not limited to CHF exacerbation, pulmonary embolism, pneumonia, anxiety therefore emergent labs and imaging ordered. Chest x-ray reassuring as his labs. D-dimer negative. Patient does report mild swelling in her feet and there may be an element of mild CHF exacerbation we will treat her accordingly. Upon re-evaluation she is sleeping comfortably. I do not feel she requires admission Heart Score: 3 Differential Dx:Considerations: Include: anxiety, asthma, bronchitis, cardiogenic shock, CHF, COPD, dysrhythmia, hypertension, accelerated, hypertension, essential, hypertension, malignant, hyperventilation, hyponatremia, myocardial infarction, panic attack, pneumonia, pneumonitis, pneumothorax, PSVT, pulmonary embolism, respiratory distress, respiratory failure, sinusitis, upper resp. infection, other Departure Disposition: HOME / SELF CARE / HOMELESS Impression: Primary Impression: Congestive heart failure Condition: Stable Discharge Instructions: Heart Failure Exacerbation Referrals: NO PRIMARY CARE PROVIDER (PCP) Prescriptions Furosemide* (Lasix*) 20 Mg Tablet 1 TAB PO BID, #4 TAB Prov: ELIEL OSUNA MD 04/14/25 Education Educated: Patient Educated regarding: diagnosis, treatment, need for follow up Signature Scribe Signature: No scribe Attestation: The note accurately reflects work and decisions made by me.Eliel Osuna MD 04/14/25 23:46 ELIEL OSUNA MD Apr 14, 2025 22:28
[2025-04-14] MEDS ORDERED: FURO-150 PO (23:46)
[2025-04-15] VITALS: BP 109/52; PULSE 69; RESP 18; TEMP 98.1; O2SAT 100
== END 2025-04-15 00:03 | disposition home or self-care (01) ==
LOC: ER 17:06
DX: I50.9 Heart failure, unspecified (principal); E11.9 Type 2 diabetes mellitus without complications; E78.00 Pure hypercholesterolemia, unspecified; K21.9 Gastro-esophageal reflux disease without esophagitis; F41.9 Anxiety disorder, unspecified; F32.A Depression, unspecified; F12.90 Cannabis use, unspecified, uncomplicated; I25.10 Atherosclerotic heart disease of native coronary artery without angina pectoris; Z88.8 Allergy status to other drugs, medicaments and biological substances; Z98.84 Bariatric surgery status
CPT/HCPCS: 36415; 71045; 80048; 83880; 84484; 85025; 85379; 93005; 99285; J7030